=== PATIENT | male | born 1960 ===

== ENCOUNTER 2017-12-12 23:47 | Emergency (ER) | payer SELFPAY ==
[2017-12-13 00:39] LABS: #Basophils 0.1 thou/uL (0.0-0.2); #Eosinphils 0.3 thou/uL (0.0-0.7); #Lymphocytes 2.6 thou/uL (1.20-3.40); #Monocytes 0.8 thou/uL (0.11-0.59); #Neutrophils 5.7 thou/uL (1.40-6.50); %Eosinophils 3.4 % (0.0-10.0); %Lymphocytes 27.3 % (21.0-51.0); %Monocytes 8.4 % (0.0-10.0); %Neutrophils 59.9 % (42.0-75.0); Hemoglobin 16.4 g/dL (14.0-18.0); Mean Corpuscular HGB CONC 34.2 g/dL (32.0-36.0); Mean Corpuscular Hemoglobin 33.9 pg (27.0-31.0); Mean Corpuscular Volume 98.9 fl (80.0-94.0); Mean Platelet Volume 6.9 fL (7.4-10.4); Platelet Count 214 thou/uL (130-400); RBC Distribution Width 12.8 % (11.5-14.5); Red Blood Cell (RBC) Count 4.83 mill/uL (4.70-6.10); White Blood Cell (WBC) Count 9.5 thou/uL (4.8-10.8)
[2017-12-13] MEDS ORDERED: Nitroglycerin 0.4 MG TAB (25 Tab Bottle) ONE (01:03)
[2017-12-13 01:05] LABS: ALT (SGPT) 31 U/L (8-55); AST (SGOT) 21 U/L (5-34); Alkaline Phosphatase 70 U/L (40-150); Anion Gap 14 mmol/L (10-20); BUN (Urea Nitrogen) 14 mg/dL (8.4-25.7); Bilirubin, Total 0.3 mg/dL (0.2-1.2); CK (CPK) 113 U/L (30-200); Calc. Creatinine Clearance 0 mL/min (70-130); Calcium 9.1 mg/dL (7.8-10.44); Carbon Dioxide 23 mmol/L (22-29); Chloride 106 mmol/L (98-107); Estimated GFR-MDRD 63; Globulin 3.2 g/dL (2.4-3.5); Glucose 175 mg/dL (70-105); Potassium 4.5 mmol/L (3.5-5.1); Protein, Total 7.2 g/dL (6.0-8.3); Sodium 138 mmol/L (136-145)
[2017-12-13 01:07] LABS: CKMB 0.9 ng/mL (0-6.6); Troponin I 0.043 ng/mL (< 0.028)
--- NOTE | 2017-12-13 08:46 | RAD ---
PA AND LATERAL OF THE CHEST: HISTORY: Midsternal chest pain and coughing up mucus. COMPARISON: None. FINDINGS: No airspace consolidation is evident. There is postsurgical change of a CABG. There is mild cardiom egaly without evidence of pulmonary vascular congestion or pleural effusions. There is some coarseni ng of the interstitial markings which may reflect underlying COPD. There is multilevel spondylosis o f thoracic spine. IMPRESSION: 1. Post coronary artery bypass graft change 2. Mild cardiomegaly without evidence of cardiac decompensation. 3. Coarse appearance of the lung parenchyma likely related to underlying chronic lung changes. POS: KIMBERLY
== END 2017-12-13 02:36 | disposition left against medical advice (07) ==
LOC: ERS 23:47
DX: R07.9 Chest pain, unspecified (principal); F32.9 Major depressive disorder, single episode, unspecified; F17.210 Nicotine dependence, cigarettes, uncomplicated; I25.2 Old myocardial infarction; Z79.899 Other long term (current) drug therapy; Z79.82 Long term (current) use of aspirin; Z71.6 Tobacco abuse counseling
CPT/HCPCS: 36415; 71046; 80053; 82553; 83880; 84484; 85025; 93005; 96360; 99406

== ENCOUNTER 2017-12-13 04:32 | Inpatient (IN) | payer SELFPAY ==
[2017-12-13 05:14] LABS: Troponin I 0.136 ng/mL (< 0.028)
[2017-12-13] MEDS ORDERED: Nitroglycerin 2% Ointment 1 INCH/1 GM Packet ONE (05:20)
[2017-12-13] MEDS ORDERED: Fentanyl 100 MCG/2 ML VIAL ONE (05:20)
[2017-12-13] MEDS ORDERED: Bisacodyl 5 MG TAB PO PRN (05:59)
[2017-12-13] MEDS ORDERED: Acetaminophen 325 MG TAB PO PRN (05:59)
[2017-12-13] MEDS ORDERED: Nitroglycerin 0.4 MG TAB (25 Tab Bottle) PO PRN (06:01)
[2017-12-13] MEDS ORDERED: Fentanyl 100 MCG/2 ML VIAL SLOW IVP PRN (06:01)
[2017-12-13] MEDS ORDERED: Nitroglycerin 0.4 MG TAB (25 Tab Bottle) ONE (06:30)
[2017-12-13] MEDS ORDERED: Enoxaparin Sodium 100 MG/ML SYRINGE ONE (06:30)
[2017-12-13 08:16] LABS: Troponin I 0.301 ng/mL (< 0.028)
--- NOTE | 2017-12-13 08:23 | HP ---
PRIMARY CARE PROVIDER: None. CHIEF COMPLAINT: Chest pain. HISTORY OF PRESENT ILLNESS: Mr. Colón is a pleasant 57-year-old gentleman who was seen at [facility] on 12/13/2017. Around 11:00 p.m. last night, he was woken up from sleep by chest heaviness. He reports that it was a sensation of an elephant sitting on his chest, nonradiating, 10/10 at its worst. He came to the em ergency room. He denies having any shortness of breath, nausea, or lightheadedness. In the emergenc y room, the emergency room physician recommended admission for further investigations. He refused an d left against medical advice. He subsequently returned to the emergency room because he had a recur rence of symptoms when he laid down. He currently describes the chest discomfort as 8/10, retrostern al, radiating to both sides of his mandible. He cannot recall any aggravating or relieving factors. REVIEW OF SYSTEMS: All other systems reviewed and found to be negative. PAST MEDICAL HISTORY: Coronary artery disease, myocardial infarction, degenerative joint disease, an nular tear arthritis, and chronic back pain. PAST SURGICAL HISTORY: Coronary artery bypass graft surgery x4 vessels and carpal tunnel surgery. PSYCHIATRIC HISTORY: Depression. SOCIAL HISTORY: The patient drinks alcohol occasionally. He smokes 1-1/2 packs of cigarettes a day. He denies recreational drug use. ALLERGIES: MORPHINE and PENICILLIN. CURRENT MEDICATIONS: Aspirin 81 mg daily, Prilosec 20 mg daily, garlic, and fish oil. He reports th at since his coronary artery bypass graft surgery in 2009, he stopped all medications except natural supplements. PHYSICAL EXAMINATION: GENERAL: Mr. Colón is awake and alert, in mild distress. VITAL SIGNS: Blood pressure is 130/89. Pulse is 85. His breathing at rate of 18, and saturating 94 % on room air. He is afebrile. EYES: No scleral icterus. No conjunctival pallor. ENT: Moist mucosal membranes. No oropharyngeal erythema or exudates. NECK: Supple, nontender, normal range of movement. Trachea is midline. RESPIRATORY: Accessory muscles of breathing are not active. Chest wall movements are symmetric bila terally. LUNGS: Clear to auscultation, without wheeze, rhonchi, or crepitations. CARDIOVASCULAR: S1 and S2 are heard, regular. Peripheral pulses palpable. No carotid bruit, no per icardial rub. ABDOMEN: Soft, nontender, bowel sounds are heard. No hepatomegaly, no splenomegaly. NEUROLOGIC: Cranial nerves II through XII are intact. Deep tendon reflexes are 2+. MUSCULOSKELETAL: Power is 5/5 in all 4 extremities. Normal range of movement at all major extremity joints. SKIN: No rashes or subcutaneous nodules. LYMPHATIC: No cervical lymphadenopathy. PSYCHIATRIC: Normal mood, normal affect, patient is oriented to person, place, and time. DATABASE: Mr. Colón's labs and investigations were reviewed. I reviewed his electrocardiogram, [facility] shows Q-waves in the inferior leads and T-wave flattening in the lateral leads. He is in normal s inus rhythm. I also reviewed his chest x-ray, which does not show any pulmonary infiltrates. He has troponin I that is elevated at 0.136 at 0448 hours today, trending up from 0.043 at 0018 hours today . He has unremarkable CBC and unremarkable comprehensive metabolic profile. ASSESSMENT AND PLAN: Mr. Colón is a pleasant 57-year-old gentleman who was seen at [facility] on 12/13/2017. His problem list includes: 1. Chest pain: His presentation is concerning for unstable angina, given his recurrence of symptoms while at rest as well as up trending troponin. 2. Unstable angina: Patient will be admitted to telemetry floor for further workup and management, including continuing aspirin and initiating Lovenox. The emergency room physician will discuss the c ase with the instructional support specialist weapons electrical engineering officer. 3. Tobacco abuse: Patient has been counseled regarding tobacco cessation. We will start him on marnie otine replacement therapy. 4. Medication noncompliance. Patient has been counseled regarding medication noncompliance. LEVEL OF RISK: High. LEVEL OF COMPLEXITY: High.
[2017-12-13] MEDS ORDERED: Enoxaparin Sodium 100 MG/ML SYRINGE SC SCH (09:00)
[2017-12-13] MEDS ORDERED: Communication Order-Pharmacy FS SCH (09:15)
[2017-12-13] MEDS ORDERED: Metoprolol Tartrate 25 MG TAB PO SCH (09:30)
[2017-12-13] MEDS: Metoprolol Tartrate 25 MG TAB PO SCH ×3 (09:56→20:23)
[2017-12-13] MEDS: Aspirin 325 MG TAB PO SCH (10:03)
[2017-12-13] MEDS: Nicotine 21 MG PATCH TD SCH (10:03)
[2017-12-13] MEDS: Clopidogrel Bisulfate 300 MG TAB PO SCH ×2 (10:03→12:04)
[2017-12-13 10:08] VITALS: BMI 31.8
--- NOTE | 2017-12-13 11:43 | CON ---
DATE OF CONSULTATION: 12/13/2017 HISTORY OF PRESENT ILLNESS: The patient is an unfortunate 57-year-old gentleman who presents with recurrent chest discomfort. The patient has a long history of coronary artery disease. He states he has had multiple stents with between 5 and 10 stents placed throughout his life. He states in 2009, he underwent coronary bypass surgery x4 in [place]. He has subsequently had several stents placed. The last was in [place], [place] in 2014. The patient unfortunately has not been taking his cardiac medications and has continued to smoke. He was in his usual state of health when he suddenly developed midsternal chest discomfort. He came to the emergency room. He received nitroglycerin and his pain resolved. He subsequently left the hospital , but returned with recurrent chest discomfort. The patient at this time denies having any present chest discomfort. PAST MEDICAL HISTORY: Coronary artery disease. PAST SURGICAL HISTORY: Carpal tunnel syndrome and surgery of his right groin for recluse spider bite. SOCIAL HISTORY: The patient continues to smoke between a half and a full pack a day. FAMILY HISTORY: Positive family history of coronary artery disease. MEDICATIONS: On admission was aspirin a tablet daily. REVIEW OF SYSTEMS: Ten-point system otherwise unremarkable. PHYSICAL EXAMINATION: GENERAL: Obese gentleman in no acute distress. VITAL SIGNS: Blood pressure was 145/92. NECK: Showed no jugular venous distention. LUNGS: Clear to auscultation. HEART: Regular rate and rhythm, normal S1, S2, no murmurs. ABDOMEN: Distended. EXTREMITIES: Showed no edema. SKIN: Warm and dry. NEUROLOGIC: Nonfocal. VASCULAR: Radial pulses are 2+. Femoral pulses are 2+. LABORATORY DATA: His white blood cell count was 9.5, hemoglobin 16.4, hematocrit 47.8, platelets are 214,000. Sodium is 138, potassium 4.5, chloride 106, bicarbonate 23, BUN 14, creatinine is 1.18, glucose is 175. Troponin was 0.301. EKG revealed normal sinus rhythm with Q-waves suggestive of previous inferior infarct. IMPRESSION: 1. Non-Q-wave myocardial infarction. 2. History of multiple percutaneous transluminal coronary angioplasty and stent placement. 3. History of coronary bypass surgery. 4. Noncompliance. 5. Tobacco abuse. This gentleman presents with non-Q-wave myocardial infarction. The patient unfortunately is not compliant with his medications. From a cardiac standpoint , I have recommended the patient proceed with repeat catheterization to see whether he has developed progressive coronary artery disease. The patient is at high risk for cardiac complication and life-threatening consequences particularly being noncompliant with his followup and medications. PLAN: 1. Continue aspirin. 2. Add Plavix. 3. Start Lipitor. 4. Add beta jacqueline therapy. 5. Proceed with cardiac catheterization if the patient is agreeable. MIRTA
[2017-12-13] MEDS ORDERED: Enoxaparin Sodium 100 MG/ML SYRINGE SC ONE (18:30)
[2017-12-13] MEDS: Atorvastatin Calcium 40 MG TAB PO SCH (20:23)
[2017-12-14 05:23] LABS: #Eosinphils 0.3 thou/uL (0.0-0.7); #Lymphocytes 1.6 thou/uL (1.20-3.40); #Monocytes 0.7 thou/uL (0.11-0.59); #Neutrophils 3.7 thou/uL (1.40-6.50); %Basophils 0.7 % (0.0-1.0); %Eosinophils 4.2 % (0.0-10.0); %Lymphocytes 25.5 % (21.0-51.0); %Monocytes 11.7 % (0.0-10.0); Hemoglobin 15.9 g/dL (14.0-18.0); Mean Corpuscular HGB CONC 31.6 g/dL (32.0-36.0); Mean Corpuscular Hemoglobin 31.3 pg (27.0-31.0); Mean Corpuscular Volume 99.2 fl (80.0-94.0); Mean Platelet Volume 6.7 fL (7.4-10.4); Platelet Count 211 thou/uL (130-400); RBC Distribution Width 12.8 % (11.5-14.5); Red Blood Cell (RBC) Count 5.07 mill/uL (4.70-6.10); White Blood Cell (WBC) Count 6.4 thou/uL (4.8-10.8)
[2017-12-14] MEDS: Aspirin 325 MG TAB PO SCH (05:24)
[2017-12-14] MEDS: Metoprolol Tartrate 25 MG TAB PO SCH ×2 (05:24→20:00)
[2017-12-14] MEDS: Clopidogrel Bisulfate 75 MG TAB PO SCH (05:24)
[2017-12-14] MEDS: Nicotine 21 MG PATCH TD SCH (05:24)
[2017-12-14 05:30] LABS: Anion Gap 13 mmol/L (10-20); BUN (Urea Nitrogen) 10 mg/dL (8.4-25.7); Calc. Creatinine Clearance 107 mL/min (70-130); Calcium 9.4 mg/dL (7.8-10.44); Carbon Dioxide 25 mmol/L (22-29); Chloride 106 mmol/L (98-107); Estimated GFR-MDRD 72; Glucose 101 mg/dL (70-105); Potassium 4.1 mmol/L (3.5-5.1); Sodium 140 mmol/L (136-145)
[2017-12-14] MEDS ORDERED: Lidocaine 1% (PF) 30 ML VIAL ONE (06:46)
[2017-12-14] MEDS ORDERED: Fentanyl 100 MCG/2 ML VIAL ONE (07:29)
[2017-12-14] MEDS ORDERED: Midazolam HCl 2 mg/2 ml Vial ONE (07:29)
[2017-12-14] MEDS ORDERED: Nitroglycerin 0.4 MG TAB (25 Tab Bottle) SL PRN (08:20)
[2017-12-14] MEDS ORDERED: Sodium Chloride 0.9% 200 ML IV SCH (08:30)
[2017-12-14] MEDS ORDERED: Heparin 10,000 UNITS/1 ML VIAL ONE (09:06)
--- NOTE | 2017-12-14 11:44 | PDOC.PN ---
- Subjective Encounter Start Date: 12/14/17 Encounter Start Time: 10:00 -: old records requested/rev Pt seen and examined, chart reviewe din its entirety, this is my first visit with this patient follow up for unstable angina, CAD, medicla nonadherence. to catholic priest earleir, unsuccessful cath or needed and intervention, which dr Damon does not do. back to laboratory engineer on sunday for re-look. no CP, no f/C, no n/V/Dc, no cough, no sputum, no diaphoresis. Hungry - Objective MAR Reviewed: Yes Vital Signs & Weight: Vital Signs (12 hours) Temp Pulse Resp BP Pulse Ox 12/14/17 03:39 98.6 F 84 18 127/81 93 L Weight Weight 217 lb 9 oz I&O: 12/13/17 12/14/17 12/15/17 06:59 06:59 06:59 Intake Total 920 Output Total 2550 Balance -1630 Result Diagrams: 12/14/17 04:35 12/14/17 04:35 Radiology Reviewed by me: Yes EKG Reviewed by me: Yes Phys Exam - Physical Examination Constitutional: NAD HEENT: PERRLA, moist MMs, sclera anicteric, oral pharynx no lesions Neck: no nodes, no JVD, supple, full ROM Respiratory: no wheezing, no rales, no rhonchi, clear to auscultation bilateral Cardiovascular: RRR, no significant murmur, no rub Gastrointestinal: soft, non-tender, no distention, positive bowel sounds Musculoskeletal: pulses present, edema present trace pedal Neurological: non-focal, normal sensation, moves all 4 limbs Lymphatic: no nodes Psychiatric: normal affect, A&O x 3 Skin: no rash, normal turgor, cap refill <2 seconds Dx/Plan (1) NSTEMI (non-ST elevated myocardial infarction) Code(s): I21.4 - NON-ST ELEVATION (NSTEMI) MYOCARDIAL INFARCTION Status: Acute (2) Unstable angina Status: Acute (3) Nonadherence to medication Code(s): Z91.14 - PATIENT'S OTHER NONCOMPLIANCE WITH MEDICATION REGIMEN Status : Chronic (4) Chronic back pain Code(s): M54.9 - DORSALGIA, UNSPECIFIED; G89.29 - OTHER CHRONIC PAIN Status: Chronic Qualifiers: Back pain location: low back pain Back pain laterality: unspecified Sciatica presence: without sciatica Qualified Code(s): M54.5 - Low back pain; G89.29 - Other chronic pain; G89.29 - Other chronic pain - Plan cont current plan of care * . flat for a few hours, feed at 1300. cool off through weekend, cath sunday
[2017-12-14] MEDS ORDERED: Iopamidol 370 76% 100 ML VIAL ONE (15:27)
[2017-12-14] MEDS ORDERED: Iopamidol 370 76% 50 ML VIAL FS ONE (15:27)
[2017-12-14] MEDS: Atorvastatin Calcium 40 MG TAB PO SCH (19:59)
[2017-12-15 05:26] LABS: #Eosinphils 0.3 thou/uL (0.0-0.7); #Lymphocytes 1.8 thou/uL (1.20-3.40); #Monocytes 0.9 thou/uL (0.11-0.59); #Neutrophils 4.7 thou/uL (1.40-6.50); %Basophils 0.5 % (0.0-1.0); %Eosinophils 4.1 % (0.0-10.0); %Lymphocytes 23.2 % (21.0-51.0); %Neutrophils 61.3 % (42.0-75.0); Hemoglobin 16.2 g/dL (14.0-18.0); Mean Corpuscular HGB CONC 33.2 g/dL (32.0-36.0); Mean Corpuscular Hemoglobin 33.2 pg (27.0-31.0); Platelet Count 222 thou/uL (130-400); RBC Distribution Width 12.8 % (11.5-14.5); Red Blood Cell (RBC) Count 4.87 mill/uL (4.70-6.10); White Blood Cell (WBC) Count 7.7 thou/uL (4.8-10.8)
[2017-12-15 05:32] LABS: Anion Gap 11 mmol/L (10-20); BUN (Urea Nitrogen) 17 mg/dL (8.4-25.7); Calc. Creatinine Clearance 91 mL/min (70-130); Calcium 9.6 mg/dL (7.8-10.44); Carbon Dioxide 28 mmol/L (22-29); Cardiac Risk 8.5 (Less than 4.5); Chloride 104 mmol/L (98-107); Cholesterol 237 mg/dl (< 200 Desired); Estimated GFR-MDRD 61; Glucose 122 mg/dL (70-105); HDL Cholesterol 28 mg/dL (>60 Neg Risk); LDL Cholesterol, Calculated 166 mg/dL; Magnesium 2.4 mg/dL (1.6-2.6); Potassium 4.1 mmol/L (3.5-5.1); Sodium 139 mmol/L (136-145); Triglycerides 213 mg/dL (Less than 150)
[2017-12-15] MEDS: Aspirin 325 MG TAB PO SCH (09:34)
[2017-12-15] MEDS: Metoprolol Tartrate 25 MG TAB PO SCH ×2 (09:34→20:36)
[2017-12-15] MEDS: Clopidogrel Bisulfate 75 MG TAB PO SCH (09:34)
[2017-12-15] MEDS: Nicotine 21 MG PATCH TD SCH (09:41)
--- NOTE | 2017-12-15 15:10 | CT ---
CT ANGIOGRAM CHEST INCLUDING 3D RENDERING: Date: 12/15/17 HISTORY: 57-year-old male with history of injury to right carotid artery or aortic arch during prior procedure . History of atherosclerotic arteriovascular disease. FINDINGS: No evidence for aortic aneurysm or aortic dissection. The visualized origins of the innominate artery , proximal right common carotid artery, left common carotid artery, and left subclavian arteries appe ar unremarkable. No central pulmonary artery thrombosis. Postop midline sternotomy and coronary arter y bypass changes, as well as multiple vascular coronary stents. No pleural effusion or pericardial ef fusion. No pneumothorax. Fatty changes in the liver. Otherwise unremarkable visualized abdomen. IMPRESSION: Unremarkable CT angiogram chest with 3D rendering. No evidence for aortic aneurysm or dissection. No evidence of visualized innominate, right common carotid artery, left common carotid artery, or left s ubclavian artery dissection or injury. Fatty changes in the liver. POS: KIMBERLY
--- NOTE | 2017-12-15 16:43 | PDOC.PN ---
- Subjective Encounter Start Date: 12/15/17 Encounter Start Time: 13:30 follow up for unstable angina. discussed with gin [facility], pt developed RCA dissection. aborted, will retry sunday. Dr mondragon requested CT angio no CP, no SOb, no f/C, no N/V/d/C all systems reviewed and neg x as per HPI - Objective MAR Reviewed: Yes Vital Signs & Weight: Vital Signs (12 hours) Temp Pulse Resp BP 12/15/17 08:00 97.7 F 79 14 112/82 Weight Weight 217 lb 8 oz I&O: 12/14/17 12/15/17 12/16/17 06:59 06:59 06:59 Intake Total 920 1660 Output Total 2550 3200 Balance -1630 -1540 Result Diagrams: 12/15/17 04:27 12/15/17 04:27 Phys Exam - Physical Examination Constitutional: NAD HEENT: PERRLA, moist MMs, sclera anicteric, oral pharynx no lesions Neck: no nodes, no JVD, supple, full ROM Respiratory: no wheezing, no rales, no rhonchi, clear to auscultation bilateral Cardiovascular: RRR, no significant murmur, no rub Gastrointestinal: soft, non-tender, no distention, positive bowel sounds Musculoskeletal: no edema, pulses present Neurological: non-focal, normal sensation, moves all 4 limbs Lymphatic: no nodes Psychiatric: normal affect, A&O x 3 Skin: no rash, normal turgor, cap refill <2 seconds Dx/Plan (1) NSTEMI (non-ST elevated myocardial infarction) Code(s): I21.4 - NON-ST ELEVATION (NSTEMI) MYOCARDIAL INFARCTION Status: Acute (2) Unstable angina Status: Acute (3) Nonadherence to medication Code(s): Z91.14 - PATIENT'S OTHER NONCOMPLIANCE WITH MEDICATION REGIMEN Status : Chronic (4) Chronic back pain Code(s): M54.9 - DORSALGIA, UNSPECIFIED; G89.29 - OTHER CHRONIC PAIN Status: Chronic Qualifiers: Back pain location: low back pain Back pain laterality: unspecified Sciatica presence: without sciatica Qualified Code(s): M54.5 - Low back pain; G89.29 - Other chronic pain; G89.29 - Other chronic pain - Plan cont current plan of care * . cath sunday
[2017-12-15] MEDS ORDERED: ISOVUE-370 76%-LOCM 1 ML ONE (18:30)
--- NOTE | 2017-12-15 19:48 | PDOC.CTH ---
Cardiology Progress Note - Subjective He is doing well. No chest pain, tightness, pressure, SOB. - Objective Vital Signs Temp Pulse Resp BP Pulse Ox 12/15/17 17:00 97.8 F 81 16 118/79 96 12/15/17 08:00 97.7 F 79 14 112/82 Weight 217 lb 8 oz 12/14/17 12/15/17 12/16/17 06:59 06:59 06:59 Intake Total 920 1660 455 Output Total 2550 3200 1200 Balance -1630 -1540 -745 - Physical Examination General/Neuro: alert & oriented x3, NAD Neck: no JVD present Lungs: unlabored respirations Heart: RRR Abdomen: NT/ND Extremities: other: (no edema.) - Telemetry Telemetry Rhythm: NSR - Labs Result Diagrams: 12/15/17 04:27 12/15/17 04:27 Troponin/CKMB Troponin I 0.301 ng/mL (< 0.028) H* 12/13/17 07:39 - Assessment/Plan 1. NSTEMI 2. CAD 3. S/P CABG in the past 4. Tobacco use 5. Non compliance. PLAN: - Small staining during diagnostic LHC did not seem to cause any major issues. His CT angio of the chest shows no dissection. - Plan to proceed to PCI to LCx sunday.
[2017-12-15] MEDS: Atorvastatin Calcium 40 MG TAB PO SCH (20:36)
[2017-12-16] MEDS: Aspirin 325 MG TAB PO SCH (10:18)
[2017-12-16] MEDS: Metoprolol Tartrate 25 MG TAB PO SCH ×2 (10:18→21:25)
[2017-12-16] MEDS: Nicotine 21 MG PATCH TD SCH (10:19)
[2017-12-16] MEDS: Clopidogrel Bisulfate 75 MG TAB PO SCH (10:19)
--- NOTE | 2017-12-16 16:10 | PDOC.CTH ---
Cardiology Progress Note - Subjective He is doing well. No issues. No chest pain, he has been walking around without issues. - Objective Vital Signs Temp Pulse Resp BP BP Pulse Ox 12/16/17 14:13 97.6 F 77 12 119/79 97 12/16/17 08:00 97.7 F 79 20 115/75 95 12/16/17 04:34 95 Weight 217 lb 1 oz 12/15/17 12/16/17 12/17/17 06:59 06:59 06:59 Intake Total 1660 695 Output Total 3200 1900 900 Balance -1540 -1205 -900 - Physical Examination General/Neuro: alert & oriented x3, NAD Neck: no JVD present Lungs: CTA, unlabored respirations Heart: RRR Abdomen: NT/ND (no edema) - Telemetry Telemetry Rhythm: NSR - Labs Result Diagrams: 12/15/17 04:27 12/15/17 04:27 Troponin/CKMB Troponin I 0.301 ng/mL (< 0.028) H* 12/13/17 07:39 - Assessment/Plan 1. NSTEMI 2. CAD 3. S/P CABG in the past 4. Tobacco use 5. Non compliance. PLAN: - Small staining during diagnostic LHC did not seem to cause any major issues. His CT angio of the chest shows no dissection. - Plan to proceed to PCI to LCx tomorrow. - Brilinta load today.
[2017-12-16] MEDS ORDERED: Communication Order-Pharmacy FS SCH (16:15)
[2017-12-16] MEDS ORDERED: TICAGRELOR 90 MG TABLET PO SCH ×3 (16:15→21:00)
[2017-12-16] MEDS: Sodium Chloride 0.9% 1,000 ML IV SCH (19:03)
[2017-12-16] MEDS: TICAGRELOR 90 MG TABLET PO SCH (21:25)
[2017-12-16] MEDS: Atorvastatin Calcium 40 MG TAB PO SCH (21:25)
[2017-12-17] MEDS: Sodium Chloride 0.9% 1,000 ML IV SCH ×2 (00:40→05:38)
[2017-12-17] MEDS: Metoprolol Tartrate 25 MG TAB PO SCH ×2 (05:39→21:03)
[2017-12-17] MEDS ORDERED: Lidocaine 1% (PF) 30 ML VIAL ONE (06:46)
[2017-12-17] MEDS ORDERED: Iopamidol 370 76% 100 ML VIAL ONE (07:27)
[2017-12-17] MEDS ORDERED: Iopamidol 370 76% 50 ML VIAL FS ONE (07:27)
--- NOTE | 2017-12-17 07:33 | PDOC.PN ---
- Subjective Encounter Start Date: 12/16/17 Encounter Start Time: 14:05 Follow up for unstable angina No complaints, no events Pending heart cath in the AM No CP or sOB, no F/c, no D/C All systems reviewed and neg x as above - Objective MAR Reviewed: Yes Vital Signs & Weight: Vital Signs (12 hours) Temp Pulse Resp BP Pulse Ox 12/17/17 05:41 94 L 12/17/17 04:00 96.3 F L 84 18 122/85 12/16/17 20:00 97.9 F 79 18 117/60 94 L Weight Weight 217 lb I&O: 12/16/17 12/17/17 12/18/17 06:59 06:59 06:59 Intake Total 695 Output Total 1900 900 Balance -1205 -900 Result Diagrams: 12/15/17 04:27 12/15/17 04:27 Radiology Reviewed by me: Yes Phys Exam - Physical Examination Constitutional: NAD HEENT: PERRLA, moist MMs, sclera anicteric, oral pharynx no lesions Neck: no nodes, no JVD, supple, full ROM Respiratory: no wheezing, no rales, no rhonchi, clear to auscultation bilateral Cardiovascular: RRR, no significant murmur, no rub Gastrointestinal: soft, non-tender, no distention, positive bowel sounds Musculoskeletal: no edema, pulses present Neurological: non-focal, normal sensation, moves all 4 limbs Lymphatic: no nodes Psychiatric: normal affect, A&O x 3 Skin: no rash, normal turgor, cap refill <2 seconds Dx/Plan (1) NSTEMI (non-ST elevated myocardial infarction) Code(s): I21.4 - NON-ST ELEVATION (NSTEMI) MYOCARDIAL INFARCTION Status: Acute (2) Unstable angina Status: Acute (3) Nonadherence to medication Code(s): Z91.14 - PATIENT'S OTHER NONCOMPLIANCE WITH MEDICATION REGIMEN Status : Chronic (4) Chronic back pain Code(s): M54.9 - DORSALGIA, UNSPECIFIED; G89.29 - OTHER CHRONIC PAIN Status: Chronic Qualifiers: Back pain location: low back pain Back pain laterality: unspecified Sciatica presence: without sciatica Qualified Code(s): M54.5 - Low back pain; G89.29 - Other chronic pain; G89.29 - Other chronic pain - Plan cont current plan of care * .
[2017-12-17] MEDS ORDERED: Midazolam HCl 2 mg/2 ml Vial ONE (08:01)
[2017-12-17] MEDS ORDERED: Fentanyl 100 MCG/2 ML VIAL ONE (08:02)
[2017-12-17] MEDS ORDERED: Heparin 10,000 UNITS/1 ML VIAL ONE (08:30)
[2017-12-17] MEDS ORDERED: Nitroglycerin 100MG/250ML BOT 250 ML ONE (08:34)
[2017-12-17] MEDS ORDERED: Aspirin 81 mg Enteric Coated Tablet PO SCH (09:00)
[2017-12-17] MEDS: TICAGRELOR 90 MG TABLET PO SCH ×2 (11:37→21:03)
[2017-12-17] MEDS: Nicotine 21 MG PATCH TD SCH (11:41)
[2017-12-17] MEDS: Atorvastatin Calcium 40 MG TAB PO SCH (21:03)
[2017-12-18 05:13] LABS: #Eosinphils 0.3 thou/uL (0.0-0.7); #Lymphocytes 2.1 thou/uL (1.20-3.40); #Monocytes 0.9 thou/uL (0.11-0.59); #Neutrophils 5.1 thou/uL (1.40-6.50); %Basophils 0.5 % (0.0-1.0); %Eosinophils 3.5 % (0.0-10.0); %Lymphocytes 24.9 % (21.0-51.0); %Monocytes 10.5 % (0.0-10.0); %Neutrophils 60.6 % (42.0-75.0); Hemoglobin 16.4 g/dL (14.0-18.0); Mean Corpuscular HGB CONC 32.7 g/dL (32.0-36.0); Mean Corpuscular Hemoglobin 32.9 pg (27.0-31.0); Platelet Count 219 thou/uL (130-400); RBC Distribution Width 12.6 % (11.5-14.5); Red Blood Cell (RBC) Count 4.99 mill/uL (4.70-6.10); White Blood Cell (WBC) Count 8.4 thou/uL (4.8-10.8)
[2017-12-18 05:22] LABS: ALT (SGPT) 46 U/L (8-55); AST (SGOT) 26 U/L (5-34); Albumin 4.1 g/dL (3.5-5.0); Alkaline Phosphatase 66 U/L (40-150); Anion Gap 10 mmol/L (10-20); BUN (Urea Nitrogen) 17 mg/dL (8.4-25.7); Bilirubin, Total 0.6 mg/dL (0.2-1.2); Calc. Creatinine Clearance 94 mL/min (70-130); Calcium 9.5 mg/dL (7.8-10.44); Carbon Dioxide 28 mmol/L (22-29); Chloride 106 mmol/L (98-107); Estimated GFR-MDRD 65; Globulin 2.8 g/dL (2.4-3.5); Glucose 120 mg/dL (70-105); Potassium 4.2 mmol/L (3.5-5.1); Protein, Total 6.9 g/dL (6.0-8.3); Sodium 140 mmol/L (136-145)
[2017-12-18] MEDS: Metoprolol Tartrate 25 MG TAB PO SCH (07:58)
[2017-12-18] MEDS: Nicotine 21 MG PATCH TD SCH (07:58)
[2017-12-18] MEDS: TICAGRELOR 90 MG TABLET PO SCH (07:58)
[2017-12-18 08:35] VITALS: TEMP 98.2
[2017-12-18 08:51] VITALS: BP 122/93
[2017-12-18] MEDS ORDERED: Lisinopril 5 MG TAB PO SCH (09:00)
--- NOTE | 2017-12-18 15:08 | PDOC.PN ---
- Subjective Encounter Start Date: 12/17/17 Encounter Start Time: 12:50 pt to blood bank laboratory professional earlier. got 2 stents into the PDA. nochest pain, no n/V, no F/ c. asking to go home discussed with giancarlo, okay to discharge later. Dr nina held d/C to get LVEF and post PCI All systems reviewed and neg x as per HPI - Objective MAR Reviewed: Yes Vital Signs & Weight: Vital Signs (12 hours) Temp Pulse Resp BP BP BP Pulse Ox 12/18/17 08:50 122/93 H 12/18/17 08:00 98.2 F 78 18 109/77 12/18/17 07:15 98.2 F 78 18 100/62 93 L 12/18/17 04:00 98.0 F 70 20 108/73 Weight Weight 212 lb I&O: 12/17/17 12/18/17 12/19/17 06:59 06:59 06:59 Intake Total 840 Output Total 900 1350 Balance -900 -510 Result Diagrams: 12/18/17 04:47 12/18/17 04:47 Phys Exam - Physical Examination Constitutional: NAD HEENT: PERRLA, moist MMs, sclera anicteric, oral pharynx no lesions Neck: no nodes, no JVD, supple, full ROM Respiratory: no wheezing, no rales, no rhonchi, clear to auscultation bilateral Cardiovascular: RRR, no significant murmur, no rub Gastrointestinal: soft, non-tender, no distention, positive bowel sounds Musculoskeletal: no edema, pulses present Neurological: non-focal, normal sensation, moves all 4 limbs Lymphatic: no nodes Psychiatric: normal affect, A&O x 3 Skin: no rash, normal turgor, cap refill <2 seconds Dx/Plan (1) NSTEMI (non-ST elevated myocardial infarction) Code(s): I21.4 - NON-ST ELEVATION (NSTEMI) MYOCARDIAL INFARCTION Status: Resolved Comment: S/P PCI and stent X 2 today. EF pending. home in AM (2) Unstable angina Status: Resolved (3) Nonadherence to medication Code(s): Z91.14 - PATIENT'S OTHER NONCOMPLIANCE WITH MEDICATION REGIMEN Status : Chronic (4) Chronic back pain Code(s): M54.9 - DORSALGIA, UNSPECIFIED; G89.29 - OTHER CHRONIC PAIN Status: Chronic Qualifiers: Back pain location: low back pain Back pain laterality: unspecified Sciatica presence: without sciatica Qualified Code(s): M54.5 - Low back pain; G89.29 - Other chronic pain; G89.29 - Other chronic pain - Plan cont current plan of care, plan discussed w/ family, PT/OT, out of bed/ambulate * .
--- NOTE | 2017-12-18 15:25 | DIS ---
DATE OF ADMISSION: 12/13/2017 DATE OF DISCHARGE: 12/18/2017 PRIMARY CARE PHYSICIAN: None. PRIMARY PERSONAL CARE WORKER: Dr. Damon. DISCHARGE DIAGNOSES: 1. Unstable angina. 2. Status post right coronary artery dissection. 3. Medical noncompliance. 4. Left heart catheterization and stent placement. 5. Ongoing tobacco abuse. 6. Demand ischemia. 7. Chronic back pain. CONSULTATIONS: Cardiology, Dr. Solo Damon and Dr. Eric Barber. PROCEDURES: 1. CTA of the thorax, negative for pulmonary embolus. 2. 2D echocardiogram on 12/17/2017 showed EF of 35%-40%, akinetic akinesis of the inferior wall of t he left ventricle and mild TR. 3. Left heart catheterization on 12/14/2017 with possible right coronary artery dissection. 4. Repeat PTCA/left heart catheterization with stent placement to the PDA x2 by Dr. Barber on 2017. HISTORY AND PHYSICAL: Mr. Colón is a 57-year-old gentleman with known coronary disease who is curre ntly homeless. He is noncompliant with medications, who presented to the emergency department on complaining of chest pain. He denied any shortness of breath, nausea, or lightheadedness and we were called for admission. The patient refused and left against medical advice and came back to the emergency department because he had more pain when he laid down. HOSPITAL COURSE: The patient was seen and examined by Dr. Cullen on morning of 12/13/2017. He was pl aced in observation. He was placed on inpatient status and serial cardiac biomarkers obtained and Ca rdiology was consulted. The patient was seen by Dr. Solo Damon the same day and discussed with him options including left heart catheterization with the patient was finally agreeable to, so arrangement made for him to under go heart catheterization on 12/14/2017. The patient went to the kiln labourer on 12/14/2017, but upon cannulation of the right coronary artery and an expression of dye, it stayed within the wall. Due to a probability of dissection of the right co ronary artery, the procedure was aborted. The patient was allowed to be watched through the weekend. Biomarkers peaked at 0.3 and then normalized. Through the weekend 12/15/2017 and 12/16/2017, he schumacher d no further problems. On 12/17/2017, he underwent left heart catheterization and was found to have a stenosis of the posterior descending artery and underwent PTCA and stent x2 by Dr. Barber. Echocar diogram was done that evening to verify EF and that showed EF to be 40%-45%. He was watched overnigh t post-procedure and post-stent placement and on 12/18/2017 was symptom free and stable for discharge with outpatient followup. PHYSICAL EXAMINATION: The patient was seen and examined on the day of discharge. Discharge plan and disposition discussed with the patient face to face at the bedside. DISCHARGE MEDICATIONS: 1. Aspirin 81 mg p.o. daily. 2. Atorvastatin 80 mg p.o. at bedtime, prescription sent. 3. Lisinopril 5 mg daily. 4. Metoprolol tartrate 25 mg p.o. b.i.d. 5. Brilinta 90 mg p.o. b.i.d. 1 month supply was given by Dr. Damon's office. DISCHARGE ACTIVITY: Per cardiopulmonary limits. DISCHARGE DIET: Heart healthy strongly recommended. DISCHARGE CONDITION: Stable. DISPOSITION: Being discharged home via private vehicle. FOLLOWUP APPOINTMENTS: 1. Primary care physician. He has none. 2. Dr. Damon in 1-2 weeks.
== END 2017-12-18 09:45 | disposition home or self-care (01) | DRG 249 ==
LOC: ERS 04:32 → 2NO 05:20
PROVIDERS: ADMIT Internal Medicine; ATTEND Internal Medicine
PROC: 02703DZ Dilation of Coronary Artery, One Artery with Intraluminal Device, Percutaneous Approach (ICD-10-PCS; principal; 2017-12-17)
PROC: 4A023N7 Measurement of Cardiac Sampling and Pressure, Left Heart, Percutaneous Approach (ICD-10-PCS; 2017-12-17)
PROC: B2111ZZ Fluoroscopy of Multiple Coronary Arteries using Low Osmolar Contrast (ICD-10-PCS; 2017-12-17)
DX: I25.110 Atherosclerotic heart disease of native coronary artery with unstable angina pectoris (principal); F32.9 Major depressive disorder, single episode, unspecified; M54.9 Dorsalgia, unspecified; G89.29 Other chronic pain; Z91.14 Patient's other noncompliance with medication regimen; Z95.5 Presence of coronary angioplasty implant and graft; I25.2 Old myocardial infarction; Z88.5 Allergy status to narcotic agent; Z88.0 Allergy status to penicillin; Z95.1 Presence of aortocoronary bypass graft
CPT/HCPCS: 36415; 71275; 80048; 80053; 80061; 83735; 83880; 85025; 85347; 92928; 92933; 93005; 93010; 93306; 93455; 93798; 96372; 96374; 99152; 99153; A4216; C1769; C1876; C9600; J1644; J1650; J2001; J2250; J3010